=== PATIENT | male | born 1990 | race Caucasian/White ===

== ENCOUNTER → 2021-10-30 | Outpatient (CLI) | payer OTHER | LOC: HEART 5 09:28 | DX: R60.9 Edema, unspecified (principal); I34.0 Nonrheumatic mitral (valve) insufficiency | CPT/HCPCS: 93306 ==

== ENCOUNTER → 2021-11-15 | Outpatient (CLI) | payer OTHER ==
[~2021-11-15] MED LIST: ENTRESTO 24 MG1 EACH PO; LASIX TAB 20 MG20 MG GT; METOPROLOL SUCC25 MG PO
[2021-11-15 09:07] LABS: RED BLOOD COUNT 4.97 M/UL (4.20-5.50); WHITE BLOOD COUNT 9.5 K/UL (4.5-11.0)
[2021-11-15 09:36] LABS: BUN/CREATININE RATIO 18 (0-10)
== END | disposition home or self-care (01) ==
LOC: CATH 08:00
PROVIDERS: Internal Medicine Cardiovascular Disease
DX: I42.9 Cardiomyopathy, unspecified (principal); Z53.8 Procedure and treatment not carried out for other reasons; Z79.899 Other long term (current) drug therapy
CPT/HCPCS: 80048; 85025